=== PATIENT | female | born 1945 | race Caucasian/White ===

== ENCOUNTER 2016-12-15 05:42 | Day surgery (SDC) | payer MEDICARE, BC ==
[~2016-12-15] VITALS: Ht 149.9 cm; Wt 65.8 kg
[2016-12-15 07:01] VITALS: Ht 149.9 cm; Wt 65.8 kg
[2016-12-15] MEDS ORDERED: RAMI10CA48 PO (07:07)
[2016-12-15] MEDS ORDERED: OMEP20CA16 PO (07:07)
[2016-12-15] MEDS ORDERED: CARV12.579 PO (07:07)
[2016-12-15] MEDS ORDERED: ATOR40TA68 PO (07:07)
[2016-12-15] MEDS ORDERED: METF1000 PO (07:07)
[2016-12-15 07:37] VITALS: BP 161/74; PULSE 76; RESP 18
[2016-12-15] MEDS ORDERED: PROPOFOL 40 ML ONE (08:02)
[2016-12-15] MEDS ORDERED: LIDOCAINE 2% (SDV) 5 ML INJ ONE (08:02)
[2016-12-15] MEDS ORDERED: LABETALOL HCL 20MG INJ ONE (08:08)
--- NOTE | 2016-12-15 08:34 | OPPN ---
Date/Time of Note Date/Time of Note DATE: 12/15/16 TIME: 08:32 Operative Report Preoperative Diagnosis Abdominal pain Change in bowel habits Postoperative Diagnosis Gastritis with erosions Gastric mucosal biopsies were taken for H. pylori test Internal hemorrhoids Diverticulosis of the colon Operation/Procedure Performed Esophagogastroduodenoscopy and biopsy Colonoscopy and biopsy Surgeon see signature line orthodontist assistant None Anesthesia: MAC Estimated blood loss: none Transfusion Required none Specimen Gastric mucosal biopsy Random colon biopsy Grafts/Implants none Complications none ELENA PECK MD Dec 15, 2016 08:34
--- NOTE | 2016-12-15 10:39 | GILP ---
DATE OF PROCEDURE: NAME OF PROCEDURES: 1. Esophagogastroduodenoscopy and biopsy. 2. Colonoscopy and biopsy. SURGEON: Elena Fischer MD PREOPERATIVE DIAGNOSES: 1. Abdominal pain. 2. Change in the bowel habit. POSTOPERATIVE DIAGNOSES 1. Gastritis with erosions. 2. Gastric mucosal biopsies were taken for Helicobacter pylori test. 3. Colonoscopy all the way to the cecum. 4. Diverticulosis of the colon. 5. Internal hemorrhoids. 6. Random biopsies were taken to rule out microscopic colitis. INDICATION FOR THE PROCEDURE: Ms. Carmen Mejia is a 71-year-old female patient who had upper abdomin al pain, not responding to therapy. She also noticed a change in the bowel habit with episodes of d iarrhea. The patient was scheduled for endoscopy and colonoscopy for further evaluation. The procedures and possible complications were well explained to the patient, she understood and con sented to the procedure. DESCRIPTION OF PROCEDURE: Under the influence of anesthesia, the gastroscope was carefully introduc ed into the esophagus and under direct vision, it was advanced to the stomach and through the pyloru s into the duodenal bulb and descending duodenum. FINDINGS: ESOPHAGUS: The mucosa was normal. STOMACH: Patient had gastritis with erosions. Gastric mucosal biopsies were taken for H. pylori te st. DUODENUM: Normal. The colonoscope was carefully introduced in the rectum and under direct vision, it was advanced all the way to the cecum. FINDINGS: The patient had diverticulosis of the colon. She also had internal hemorrhoids. Random biopsies were taken to rule out microscopic colitis. She tolerated the procedures very well and there was no complication from the procedures. At the en d of the procedures, she was awake with stable vital signs and she was discharged home to the care o f her family. IMPRESSION: Please see postoperative diagnoses. PLAN: 1. Continue omeprazole. 2. Add Zantac 300 mg p.o. at bedtime. 3. Await histopathology reports. 4. Next screening colonoscopy in 10 years. Dictated By: ELENA LYONS/NUNO Conf#: [id number] DID#: [id number]
== END 2016-12-15 10:50 | disposition home or self-care (01) ==
LOC: GIL 05:42
PROVIDERS: ATTEND Internal Medicine Gastroenterology
DX: R19.4 Change in bowel habit (principal); K29.60 Other gastritis without bleeding; K57.90 Diverticulosis of intestine, part unspecified, without perforation or abscess without bleeding; K64.8 Other hemorrhoids; E11.9 Type 2 diabetes mellitus without complications; I10 Essential (primary) hypertension; E78.5 Hyperlipidemia, unspecified
CPT/HCPCS: 82962; 87081; 88305